=== PATIENT | female | born 1995 | race Caucasian/White ===

== ENCOUNTER 2023-08-04 19:52 | Emergency (ER) | payer MEDICAID ==
[~2023-08-04] VITALS: Ht 167.6 cm; Wt 58.5 kg
[2023-08-04 19:56] VITALS: BP 128/73; PULSE 101; RESP 16; TEMP 98.2; O2SAT 100
[2023-08-04] MEDS ORDERED: DOXYCYCLINE 100MG CAPSULE PO STA (21:46)
[2023-08-04] MEDS ORDERED: DOXY100C77 PO (21:47)
== END 2023-08-04 21:59 | disposition home or self-care (01) ==
LOC: ER 19:52
DX: L02.01 Cutaneous abscess of face (principal); Z79.899 Other long term (current) drug therapy
CPT/HCPCS: 10060; 99283; A6449

== ENCOUNTER 2024-09-25 04:27 | Emergency (ER) | payer MEDICAID ==
[~2024-09-25] VITALS: Ht 167.6 cm; Wt 70.0 kg
[2024-09-25 04:30] VITALS: BP 132/88; PULSE 98; RESP 15; TEMP 97.7; O2SAT 100
[2024-09-25] MEDS ORDERED: AMOX-101 PO (04:56)
[2024-09-25] MEDS: amoxicillin 250mg capsule PO ONE (05:05)
== END 2024-09-25 05:09 | disposition home or self-care (01) ==
LOC: ER 04:27
DX: O99.891 Other specified diseases and conditions complicating pregnancy (principal); H66.93 Otitis media, unspecified, bilateral; Z3A.35 35 weeks gestation of pregnancy
CPT/HCPCS: 99283

== ENCOUNTER 2025-05-20 11:38 | Emergency (ER) | payer MEDICAID ==
[~2025-05-20] VITALS: Ht 167.6 cm; Wt 59.1 kg
--- NOTE | 2025-05-20 11:41 | Physician Documentation ---
History of Present Illness ~ General Stated Complaint: MED CLEARANCE Time Seen by MD: 11:40 History of Present Illness Initial Comments 29 yr old female brought to the ER by [employer] due to concerns for a couple foreign bodies in the lower abdomen/pelvis on body scan. Evidently these were visualized during intake. Patient denies knowledge of foreign bodies. States that is pain- free with no chills, fever, nausea, vomiting and that she did not ingest or insert any foreign bodies. Hx of giving 7 months ago. Not on control but reports LMP 2 weeks ago. Medication Reconciliation Allergies: Coded Allergies: No Known Allergies (Unverified , 08/04/23) Past Medical History Past Medical History: No Pertinent History Past Surgical History: no surgical history Lives In: Home Review of Systems ROS As stated above in the HPI, otherwise all systems are reviewed and negative. Physical Exam Physical Exam Physical Exam General: Alert, no apparent distress. Neck: Full range of motion. Respiratory: Lungs clear, no respiratory distress. Chest: No accessory muscle use. Cardiovascular: Regular rate and rhythm, no murmurs. Gastrointestinal: Soft, nontender, nondistended. Bowels sounds present. Extremities: Normal range of motion, no deformity. Neurologic: Oriented x4. Psychiatric: Normal mood and affect. Skin: Normal color, warm and dry. No edema, no ecchymosis. Progress Results/Orders Results/Orders Orders - INDIANA LEE WEB EDITOR Abdomen,Single View(Kub) (05/20/25 12:37) Completed Orders - INDIANA LEE WEB EDITOR Abdomen,Single View(Kub) (05/20/25 12:37) Hcg, Ur Ql (05/20/25 11:46) Drug Screen, Urine (05/20/25 11:46) Vital Signs 05/20/25 11:43 Temp 98.0 Pulse 7 Resp 16 B/P (MAP) 113/82 Pulse Ox 100 O2 Flow Rate 0 Laboratory Tests Test 05/20/25 12:09 Urine HCG, Qualitative Negative Urine Opiates Screen Negative Urine Methadone Screen Positive Urine Fentanyl Screen Positive H Urine Barbiturates Screen Negative Urine Phencyclidine Screen Negative Urine Amphetamines Screen Positive Urine Benzodiazepines Screen Negative Urine Cocaine Screen Negative Urine Cannabinoids Screen Negative Drug Screen Comment EKG/XRAY/CT/US/VASC/MRI Chest X-Ray : Additional Comments [facility] [address] [address] DIAGNOSTIC RADIOLOGY Patient: LIZ CASTANEDA Medical Record: [id number] [facility] : 1995, Age: 29 Sex: Female Location: ER Patient Status: [facility] ER Service Date/Time: 05/20/25/ 1237 Ordering Physician: INDIANA LEE NP Exam: ABDOMEN,SINGLE VIEW(KUB) Date: 05/20/2025 12:38 PM Examination: DI ABDOMEN,SINGLE VIEW(KUB) History: foreign body Comparison: None TECHNIQUE: Frontal views of the abdomen was obtained. FINDINGS: Bowel gas pattern is unremarkable. The lung bases are unremarkable. No acute osseous abnormality identified. IMPRESSION: Nonobstructive bowel gas pattern. Large stool burden. No radiopaque foreign body. Electronically Signed by:ANTONIO LOMBARDI MD Date & Time: 05/20/251323 Dictated by: ANTONIO LOMBARDI MD Dictation date and time: 05/20/25 132 Primary Care Provider: NO PRIMARY CARE PROVIDER cc: INDIANA LEE NP ~ Medical Decision Making Differential Diagnosis This 29-year-old female who was brought to the emergency department due to concerns for foreign body during intake at the longterm. Scan there indicated possible foreign bodies in the pelvis. It was determined that the patient was wearing a body suit with snaps. Once the this was removed and the x-ray was repeated, no foreign body was identified by the radiologist. She is now appropriate for [employer] custody. Departure Time of Disposition: 13:32 Disposition: 01 HOME / SELF CARE / HOMELESS Impression: Primary Impression: General medical exam Condition: Stable Discharge Instructions: Medical Screening Exam Additional Instructions: No foreign body on xray. Medically cleared for [employer] custody. Medically cleared to go to longterm. Return with any other emergent concerns. Referrals: NO PRIMARY CARE PROVIDER (PCP) Education Educated: Patient, Other Educated regarding: diagnosis, treatment, prognosis, need for follow up Signature Scribe Signature: x Attestation: The note accurately reflects work and decisions made by me.Indiana Castillo NP 05/20/25 11:52 INDIANA LEE NP May 20, 2025 11:41
[2025-05-20 11:43] VITALS: BP 113/82; PULSE 7; RESP 16; TEMP 98; O2SAT 100
[2025-05-20 12:31] LABS: URINE HCG NEGATIVE (NEG)
[2025-05-20 12:46] LABS: URINE AMPHETAMINE SCREEN POSITIVE (Neg); URINE BARBITUATE SCREEN NEGATIVE (Neg); URINE BENZODIAZEPINES SCREEN NEGATIVE (Neg); URINE CANNABINOID SCREEN NEGATIVE (Neg); URINE COCAINE SCREEN NEGATIVE (Neg); URINE METHADONE SCREEN POSITIVE (Neg); URINE OPIATE SCREEN NEGATIVE (Neg); URINE PHENCYCLIDINE SCREEN NEGATIVE (Neg)
--- NOTE | 2025-05-20 13:26 | RADIOLOGY REPORT ---
Date: 05/20/2025 12:38 PM Examination: DI ABDOMEN,SINGLE VIEW(KUB) History: foreign body Comparison: None TECHNIQUE: Frontal views of the abdomen was obtained. FINDINGS: Bowel gas pattern is unremarkable. The lung bases are unremarkable. No acute osseous abnormality identified. IMPRESSION: Nonobstructive bowel gas pattern. Large stool burden. No radiopaque foreign body.
== END 2025-05-20 14:03 | disposition home or self-care (01) ==
LOC: ER 11:39
DX: Z00.00 Encounter for general adult medical examination without abnormal findings (principal)
CPT/HCPCS: 74018; 80305; 81025; 99284